=== PATIENT | female | born 1950 | race Caucasian/White ===

== ENCOUNTER → 2017-09-10 | Outpatient (CLI) | payer MEDICARE ==
[~2017-09-10] MED LIST: ALBU8.5H8 INH; AZEL137S6 INH; CALCIUM PO; CETI10CA PO; CHOL400T10 PO; EPIN0.3P3 IM; FEXO180T72 PO; FISH OIL PO; HYDR-882 PO; MONT10TA6 PO; MULT-516 PO; MV,C400T2 PO; OLOP5DRO EACHEYE; OMEP-110 PO; OXYC1TAB7 PO; PREG50CA PO; PROM25TA10 PO; PSYL0.5227 PO; TRIA16.5 INH; VITAMIN B6 PO; ZINC PO
== END | disposition home or self-care (01) ==
LOC: STAR 09:31
PROVIDERS: ATTEND Surgery
DX: Z01.818 Encounter for other preprocedural examination (principal); M62.81 Muscle weakness (generalized); I45.10 Unspecified right bundle-branch block; I45.81 Long QT syndrome
CPT/HCPCS: 93005

== ENCOUNTER 2017-09-19 05:38 | Day surgery (SDC) | payer MEDICARE ==
[~2017-09-19] VITALS: Ht 160 cm; Wt 92.8 kg
[2017-09-19] MEDS ORDERED: LACTATED RINGERS 1,000 ML IV SCH (06:12)
[2017-09-19 06:34] VITALS: BP 156/83
[2017-09-19] MEDS ORDERED: MIDAZOLAM 1 MG/ML, 2ML ONE (07:22)
[2017-09-19] MEDS ORDERED: FENTANYL PF 100 MCG/2ML ONE (07:22)
[2017-09-19] MEDS ORDERED: EPINEPHRINE 1 MG/ML, 1ML ONE (07:25)
[2017-09-19] MEDS ORDERED: BUPIVACAINE/PF 0.25% ONE (07:25)
[2017-09-19] MEDS ORDERED: PROPOFOL 10 MG/ML, 20ML ONE (08:15)
[2017-09-19] MEDS ORDERED: CEFAZOLIN 1,000 MG ONE (08:15)
[2017-09-19] MEDS ORDERED: ONDANSETRON 2MG/ML, 2ML ONE (08:15)
[2017-09-19] MEDS ORDERED: DEXAMETHASONE 4 MG/ML, 1ML ONE (08:15)
[2017-09-19] MEDS ORDERED: KETOROLAC 30 MG/1 ML IV PRN (08:30)
[2017-09-19] MEDS ORDERED: LABETALOL 5MG/ML, 20ML IV PRN (08:30)
[2017-09-19] MEDS ORDERED: ALBUTEROL/IPRATROPIUM 2.5MG/0.5MG, 3 ML NPPB PRN (08:30)
[2017-09-19] MEDS ORDERED: DIAZEPAM 5 MG/ML, 2ML IVPush PRN (08:30)
[2017-09-19] MEDS ORDERED: MIDAZOLAM 1 MG/ML, 2ML IV PRN (08:30)
[2017-09-19] MEDS ORDERED: PROMETHAZINE 25 MG SUPP PR PRN (08:30)
[2017-09-19] MEDS ORDERED: FENTANYL PF 100 MCG/2ML IV PRN (08:30)
[2017-09-19] MEDS ORDERED: OXYcodone 5 MG/5 ML ORAL.SOL UDC PO PRN (08:30)
[2017-09-19] MEDS ORDERED: ACETAMINOPHEN 325 MG TABLET PO PRN (08:30)
[2017-09-19] MEDS ORDERED: PROMETHAZINE 25 MG/ML, 1ML IV PRN (08:30)
[2017-09-19] MEDS ORDERED: ONDANSETRON ODT 8 MG PO PRN (08:30)
[2017-09-19] MEDS ORDERED: MEPERIDINE/PF 25MG/0.5ML IVPush PRN (08:30)
== END 2017-09-19 11:20 ==
LOC: OUT 05:38
PROVIDERS: ATTEND Surgery
DX: M60.9 Myositis, unspecified (principal)
CPT/HCPCS: 88300; 88329; 99001; J0171; J0690; J1100; J2250; J2405; J2704; J3010; J3490; J7120

== ENCOUNTER 2019-04-10 11:14 | Emergency (ER) | payer MEDICARE ==
[~2019-04-10] VITALS: Ht 160 cm; Wt 85.5 kg
[~2019-04-10 11:14] MED LIST changes: +HYDR-3653 PO; -HYDR-882 PO
--- NOTE | 2019-04-10 11:42 | NUR ---
PT WHEELED TO ROOM FROM TRIAGE. NOW IN ROOM, CHANGED INTO GOWN.
--- NOTE | 2019-04-10 11:48 | NUR ---
PT HERE FOR RIGHT AND LEFT UPPER QUADRANT ABDOMINAL PAIN. STARTED SATURDAY. STATES SHE HAS BEEN HAVING DIARRHEA AND VOMITING WITH IT. HAS NOT VOMITED TODAY BUT HAS BEEN DRY HEAVING. PT RESTING ON GURNEY. VSS. NADN. PROVIDED WITH WARM BLANKET.
--- NOTE | 2019-04-10 12:11 | NUR ---
TASK RN: PT ASSSITED TO RESTROOM TO PROVIDE URINE SAMPLE. UA COLLECTED AND TAKEN TO LAB. PT C/O DIZZINESS AND SHUFFLED FEET USING OWN CANE. AT BEDSIDE.
[2019-04-10 12:21] LABS: CULTURE INDICATED? YES; MICROSCOPIC INDICATED
[2019-04-10] MEDS ORDERED: ONDANSETRON 2MG/ML, 2ML IVPush ONE (12:30)
[2019-04-10] MEDS ORDERED: SODIUM CHLORIDE FLUSH 10ML SYR IVF ONE (12:30)
[2019-04-10] MEDS ORDERED: SODIUM CHLORIDE 0.9% 1,000ML IVBOLUS ONE (12:30)
[2019-04-10] MEDS ORDERED: FAMOTIDINE 20 MG/2 ML IVPush ONE (12:30)
[2019-04-10 12:42] LABS: BASOPHILS # (AUTO) 0.01 x10^3/uL (0-0.1); BASOPHILS % (AUTO) 0 % (0-1); EOSINOPHILS # (AUTO) 0.08 x10^3/uL (0-0.4); EOSINOPHILS % (AUTO) 2 % (1-7); LYMPHOCYTES # (AUTO) 1.07 x10^3/uL (1-3.4); LYMPHOCYTES % (AUTO) 22 % (22-44); MD NO; MEAN CORPUSCULAR HEMOGLOBIN 30.4 pg (27.0-34.8); MEAN CORPUSCULAR HGB CONC 33.3 g/dL (32.4-35.8); MEAN CORPUSCULAR VOLUME 91.2 fL (80-100); MEAN PLATELET VOLUME 8.6 fL (7.4-10.4); MONOCYTES # (AUTO) 0.49 x10^3/uL (0.2-0.8); MONOCYTES % (AUTO) 10 % (2-9); NEUTROPHILS # (AUTO) 3.11 x10^3/uL (1.8-6.8); NEUTROPHILS % (AUTO) 65 % (42-75); PLATELET COUNT 319 x10^3/uL (130-400); RED BLOOD COUNT 4.69 x10^6/uL (3.82-5.3); RED CELL DISTRIBUTION WIDTH 13.9 % (9.6-15.2)
[2019-04-10] MEDS ORDERED: ONDANSETRON 2MG/ML, 2ML ONE (12:43)
[2019-04-10] MEDS ORDERED: FAMOTIDINE 20 MG/2 ML ONE (12:43)
--- NOTE | 2019-04-10 12:47 | NUR ---
PIV STARTED. MEDICATED PER EMAR. RESTING ON GURNEY. NADN. VSS.
[2019-04-10 12:55] LABS: ALANINE AMINOTRANSFERASE 71 U/L (12-78); ALBUMIN 3.6 g/dL (3.4-5.0); ANION GAP 6 mmol/L (5-15); CALCIUM 8.7 mg/dL (8.5-10.1); CHLORIDE 110 mmol/L (98-107); CREATININE 0.94 mg/dL (0.55-1.02)
[2019-04-10 12:57] LABS: ALKALINE PHOSPHATASE 66 U/L (45-117); BILIRUBIN,TOTAL 0.5 mg/dL (0.2-1.0); TOTAL PROTEIN 7.7 g/dL (6.4-8.2)
--- NOTE | 2019-04-10 13:07 | NUR ---
PT TO CT NOW.
--- NOTE | 2019-04-10 13:26 | NUR ---
PT BACK FROM CT. RESTING ON MARY. NADN. BASSETT.
[2019-04-10 13:48] VITALS: BP 123/39
--- NOTE | 2019-04-10 14:09 | NUR ---
MD AT BEDSIDE UPDATING PT ON POC NOW.
--- NOTE | 2019-04-10 14:23 | NUR ---
PIV REMOVED. PT GETTING DRESSED. AWARE OF DC PLAN.
== END 2019-04-10 14:58 | disposition home or self-care (01) ==
LOC: ED 14:45
DX: R11.2 Nausea with vomiting, unspecified (principal); R19.7 Diarrhea, unspecified; R10.9 Unspecified abdominal pain; I45.10 Unspecified right bundle-branch block; I44.5 Left posterior fascicular block; R00.0 Tachycardia, unspecified; I10 Essential (primary) hypertension; J45.909 Unspecified asthma, uncomplicated
CPT/HCPCS: 36415; 74176; 80053; 81001; 83690; 85025; 87077; 87086; 87186; 93005; 96361; 96374; 96375; 99284; J2405; J3490; J7030